=== PATIENT | male | born 1950 | race Caucasian/White ===

== ENCOUNTER 2017-04-26 15:54 | Inpatient (IN) | payer OTHER ==
[2017-04-26] MEDS ORDERED: IPRATROPIUM/ALBUTEROL SULFATE 3 ML AMPUL.NEB NEB ONE ×3 (16:02→17:19)
[2017-04-26] MEDS ORDERED: methylPREDNISolone SOD SUCC 125 MG/2 ML VIAL IM ONE (16:02)
--- NOTE | 2017-04-26 16:02 | ED Physician Documentation ---
Upper Respiratory Symptoms - HISTORIAN Historian: patient - HPI Stated Complaint: short of breath Chief Complaint: Dyspnea Onset: other (1 week ) Duration: constant Context: other. denies: recent foreign travel, insect bite(s), recent chemotherapy, multiple patients Severity: moderate Associated Symptoms: fever, chills - ROS CONST/EYES: weakness CVS/RESP: none, shortness of breath. denies: chest pain, palpitations LYMPH: denies: rash, swollen glands, ankle swelling GI/: denies: abdominal pain, vomiting, nausea NEURO/PSYCH: denies: fainting, dizziness, confusion MS/SKIN: denies: rash - PAST HX Lung Disease: none PE Risk Factors: hypertension Other History: diabetes Type 2 Surgeries/Procedures: other Immunizations: UTD Allergies/Adverse Reactions: Allergies Allergy/AdvReac Type Severity Reaction Status Date / Time No Known Allergies Allergy Verified 04/26/17 16:26 Home Medications: Ambulatory Orders Medication Instructions Recorded Albuterol Sulfate [Ventolin] 2 mg PO TID 04/26/17 Cephalexin [Keflex] 500 mg PO BID 04/26/17 Diclofenac Sodium [Diclofenac 75 mg PO BID 04/26/17 Sodium] Gabapentin [Gabapentin] 100 mg PO 6XDAY 04/26/17 Ibuprofen [Motrin Ib] 600 mg PO TID PRN 04/26/17 Lisinopril [Lisinopril] 10 mg PO DAILY 04/26/17 - SOCIAL HX Smoking History: quit greater than 1 year - FAMILY HX Family History: none - VITAL SIGNS Vital Signs: Vital Signs Temp Pulse Resp BP Pulse Ox 110 H 45 H 122/74 93 04/26/17 16:27 04/26/17 16:27 04/26/17 16:27 04/26/17 17:02 - REVIEWED ASSESSMENTS Nursing Assessment Reviewed: Yes Vitals Reviewed: Yes ED Results Lab/Radiology - Lab Results Lab Results: Lab Results 04/26/17 04/26/17 04/26/17 16:20 16:15 16:10 WBC RBC Hgb Hct MCV MCH MCHC RDW Plt Count Seg Neutrophils % Lymphocytes % Monocytes % Plt Morphology Comment RBC Morph Comment Sodium Potassium Chloride Carbon Dioxide BUN Creatinine Est GFR ( Amer) Est GFR (Non-Af Amer) Glucose Calcium Total Bilirubin AST ALT Alkaline Phosphatase Troponin I < 0.03 ng/mL L ng/mL (0.03-0.06) NT-Pro-B Natriuret Pep 246.8 pg/mL H pg/mL (15.0-125.0) Total Protein Albumin Influenza Type A Ag Negative (NEGATIVE) Influenza Type B Ag Negative (NEGATIVE) 04/26/17 04/26/17 16:10 16:10 WBC 10.20 K/ul K/ul (4.00-12.00) RBC 4.75 M/ul M/ul (3.90-5.20) Hgb 14.7 g/dL g/dL (12.0-18.0) Hct 43.1 % % (37.0-53.0) MCV 90.8 fl fl (80.0-100.0) MCH 31.0 pg pg (28.0-34.0) MCHC 34.2 g/dL g/dL (30.0-36.0) RDW 13.3 % % (11.3-14.3) Plt Count 203 K/mm3 K/mm3 (130-400) Seg Neutrophils % 83 % H % (39-79) Lymphocytes % 11 % L % (16-50) Monocytes % 6 % % (0-11) Plt Morphology Comment Normal (NORMAL) RBC Morph Comment Normal (NORMAL) Sodium 133 mmol/L L mmol/L (136-145) Potassium 3.7 mmol/L mmol/L (3.5-5.1) Chloride 93 mmol/L L mmol/L (98-107) Carbon Dioxide 30 mmol/L mmol/L (22-30) BUN 16 mg/dL mg/dL (9-20) Creatinine 0.90 mg/dL mg/dL (0.66-1.25) Est GFR ( Amer) > 60 (60 - ) Est GFR (Non-Af Amer) > 60 (60 - ) Glucose 138 mg/dL H mg/dL (74-106) Calcium 8.6 mg/dL mg/dL (8.4-10.2) Total Bilirubin 0.8 mg/dL mg/dL (0.2-1.3) AST 58 U/L H U/L (15-46) ALT 54 U/L U/L (13-69) Alkaline Phosphatase 103 U/L U/L (38-126) Troponin I NT-Pro-B Natriuret Pep Total Protein 6.8 g/dL g/dL (6.3-8.2) Albumin 3.5 g/dL g/dL (3.5-5.0) Influenza Type A Ag Influenza Type B Ag - Orders Orders: ED Orders Category Date Time Status Assess pulse oximetry Q1H Care 04/26/17 16:02 Active CHEST P.A.&LAT 2 VIEWS [RAD] Stat Exams 04/26/17 Completed BLOOD CULTURE Stat Lab 04/26/17 16:10 Received BNP [NT-proBNP] Stat Lab 04/26/17 16:10 Completed CBC/PLATELET/DIFF Routine Lab 04/26/17 16:10 Completed CMP Routine Lab 04/26/17 16:10 Completed INFLUENZA A&B Routine Lab 04/26/17 16:15 Completed TROPONIN I (cTnI) Stat Lab 04/26/17 16:20 Completed Allopurinol [Zyloprim] Med 04/27/17 09:00 Ordered 300 mg PO DAILY Atorvastatin Calcium [Lipitor] Med 04/26/17 18:00 Ordered 40 mg PO HS Chem Sticks Med 04/26/17 17:00 Ordered 1 each MC CHEMQ Gabapentin [Neurontin] Med 04/27/17 09:00 Ordered 600 mg PO D Guaifenesin/Codeine Phosphate [Robitussin AC] Med 04/26/17 16:38 Discontinued 10 ml PO Q4H ONE Ipratropium/Albuterol Sulfate [Duoneb] Med 04/26/17 16:02 Discontinued 3 ml NEB .STK-MED ONE Ipratropium/Albuterol Sulfate [Duoneb] Med 04/26/17 16:02 Discontinued 3 ml NEB NOW ONE Ipratropium/Albuterol Sulfate [Duoneb] Med 04/26/17 17:19 Discontinued 3 ml NEB NOW ONE Lisinopril [Prinivil] Med 04/26/17 17:51 Once 10 mg PO NOW ONE methylPREDNISolone SOD SUCC [Solu-MEDROL] Med 04/26/17 16:02 Discontinued 125 mg IM NOW ONE Oxygen Daily Oxygen 04/26/17 16:15 Ordered EKG WITH COMPARISON Stat Ther 04/26/17 Completed Transfer Routine Transfer 04/26/17 Ordered Upper Respiratory Symptoms - EXAM General Appearance: no acute distress, mild distress EENT: eyes nml inspection Neck: normal inspection Respiratory: respiratory distress (mild ), wheezes Abdomen: non-tender, nml bowel sounds CVS: reg rate & rhythm, heart sounds normal, no murmur Skin: color nml, no rash, warm,dry Extremities: non-tender, normal range of motion, no evidence of injury, no edema Neuro/Psych: oriented x3, neuro intact, mood/affect nml Discharge Clincal Impression: Chronic obstructive lung disease Referrals: Niki Marcelino FNP [Primary Care Provider] - 2 Days Condition: Stable Disposition: 09 ADMITTED INPATIENT Decision to Admit: [id number] Date of Decison to Admit: 04/26/17 Decision Time: 17:54
[2017-04-26 16:26] LABS: MEAN CORPUSCULAR VOLUME 90.8 fl (80.0-100.0)
[2017-04-26 16:32] LABS: eGFR (African) > 60; eGFR (Non-African) > 60
[2017-04-26] MEDS ORDERED: GUAIFENESIN/CODEINE 10 ML S/F LIQUID DOSE CUP PO ONE (16:38)
[2017-04-26 16:42] LABS: MONOCYTES % 6 % (0-11); SEGMENTED NEUTROPHILS % 83 % (39-79)
--- NOTE | 2017-04-26 16:46 | Diagnostic Imaging Report ---
[facility] [address] [facility].[address] [id number] Report Submission Date: Apr 26, 2017 4:42:47 PM NUTRITIONAL YEAST SUPERVISOR Patient Study Name: NORMAN PRABHAKAR Date: Apr 26, 2017 4:21:17 PM NUTRITIONAL YEAST SUPERVISOR Modality Type: CR Gender: M Description: CHEST : 46 Institution: [facility] Physician: JOSE LOVE Examination: PA and lateral chest. History: Evaluate lung ledesma. Comparison exam: None provided Findings: PA lateral chest demonstrate a normal cardiac and mediastinal silhouette. Sternotomy wires and cardiac surgical clips. Mild prominence of the right hilum. No peripheral infiltrate. No blunting of the costophrenic margins. Osseous structures are appropriate for age. Impression: Mild right hilar fullness - infiltrate versus vascular versus density. No peripheral infiltrate or effusion. Followup recommended to document resolution. Electronically signed on Apr 26, 2017 4:42:47 PM NUTRITIONAL YEAST SUPERVISOR by: Joseph LANDRY
[2017-04-26] MEDS ORDERED: LISINOPRIL 5 MG TABLET PO ONE (17:51)
--- NOTE | 2017-04-26 18:54 | History and Physical Report ---
History of Present Illnes - History of Present Illness Reason for Visit: DYSPNEA History of Present Illness: 66-year-old white male you have a one-week history of a cough that has become more productive over the last two days of some green to yellow phlegm. Patient is been having some dyspnea and increasing shortness of breath. Patient states with ambulation is having some palpitations at this time. Patient does have a significant history of smoking. Patient subsequently came to the emergency room for evaluation. Patient was given several nebulized treatments Duoneb. Patient is not able to maintain his oxygenation above 83% on room air. Patient was subsequently admitted to the hospital for further care and evaluation. Patient had been seen by Ana M Marcelino and had been placed on cephalexin for a URI/ bronchial infection. Patient stated that he did feel like he was making some improvement with that and then got worse. - Past Medical History Cardiac: CAD, HTN, Hyperlipidemia Pulmonary: COPD Musculoskeletal: Chronic low back pain Endocrine: Other (gou) - Past Surgical History Past Surgical History: Appendectomy, CABG (double bypass), Other (fusion of lumbar vertabrea, csrdiac stent, cataract, GI bleeding) - Past Family History Mother Family History: DM, (72yo) Father Family History: CAD, (70's) Brother 1 Family History: Cancer (lung), CAD Brother 2 Family History: None Sister 1 Family History: , Other (cerebral anerysm) - Past Social History Smoke: Quit (was smoking 1 ppd 50 pk year history) Alcohol: Occassional (one beverage per week.) Drugs: None Lives: With Family Domestic Violence: Negative - Health Maintenance Health Maintenance: Colonoscopy (2010). denies: Pneumococcal Vaccine Influenza Vaccine: Current for this Influenza Season Pneumonia Vaccine: Yes Resuscitation Status: full code - Unable to Obtain History Unable to Obtain: Yes Review of Systems - Review of Systems Constitutional: Fever, Chills Eyes: negative: pain, redness ENT: negative: Ear Pain, Ear Discharge, Nose Pain, Nose Discharge, Nose Congestion, Mouth Pain, Throat Pain, Throat Swelling Respiratory: Cough, Shortness of Breath, SOB with Excertion, Sputum, Wheezing. negative: Hemoptysis, Pleuritic Pain Cardiovascular: Palpitations. negative: Chest Pain, Orthopnea, Paroxysmal Noc. Dyspnea, Edema Gastrointestinal: negative: Nausea, Vomiting, Abdominal Pain, Diarrhea, Constipation, Melena, Hematochezia Genitourinary: negative: Dysuria, Frequency, Incontinence Musculoskeletal: Back Pain Skin: negative: Rash Neurological: Weakness. negative: Numbness, Incoordination, Change in Speech, Confusion, Seizures - Medications/Allergies Allergies/Adverse Reactions: Allergies Allergy/AdvReac Type Severity Reaction Status Date / Time No Known Allergies Allergy Verified 04/26/17 16:26 Home Medications: Home Medications Albuterol Sulfate [Ventolin] 2 mg PO TID 04/26/17 Gabapentin 100 mg PO 6XDAY 04/26/17 Ibuprofen [Motrin Ib] 600 mg PO TID PRN 04/26/17 Lisinopril 10 mg PO DAILY 04/26/17 Current Inpatient Medications: Current Inpatient Medications Allopurinol (Zyloprim) 300 mg PO DAILY CROW Atorvastatin Calcium (Lipitor) 40 mg PO HS CROW Cephalexin (Keflex) 500 mg PO NOW CROW Gabapentin (Neurontin) 600 mg PO D [facility] Miscellaneous (Chem Sticks) 1 each CHEMQ [facility] Last Admin: 04/26/17 16:10 Dose: 1 each Exam - Exam General: Alert, Oriented to Person, Oriented to Place, Oriented to Time, Cooperative, Moderate distress HEENT: Atraumatic, PERRLA, EOMI, Mouth Mucous membr. moist/[place], Nose Mucous membr. moist/[place], Dentition Normal, Hearing Grossly Normal Neck: Normal Range of Motion Carotids: WNL Thyroid: WNL Lungs: Speaks full Sentences, Wheezes (bilateral, exspiratory), Rhonchi (few scattered) Cardiovascular: Regular rate, Normal S1, Normal S2, No murmurs. No: Murmur Abdomen: Normal bowel sounds, Soft, No tenderness, No hepatospenomegaly, No masses. No: Distended Integumentary: Normal, [place], Warm, Dry Extremities: No clubbing, No cyanosis, No edema, Normal pulses, No tenderness/ swelling Neurological: Normal gait, Normal speech, Strength Equal Bilat, Normal tone, Sensation intact, Cranial nerves 3-12 NL, Reflexes 2+ Psych/Mental Status: Mental status NL, Mood NL, Appropriate Affect, Intact Judgment Assessment/Plan - Assessment/Plan (1) Acute exacerbation of chronic obstructive pulmonary disease (COPD) Status: Acute Current Visit: Yes (2) Bronchitis Status: Acute Current Visit: Yes (3) Coronary arteriosclerosis Status: Chronic Current Visit: No Assessment: continue home meds (4) Diabetes type 2, controlled Status: Acute Current Visit: Yes Qualifiers: Diabetes mellitus complication status: without complication Diabetes mellitus intermediate card tender insulin use: without intermediate card tender use Qualified Code(s): E11.9 - Type 2 diabetes mellitus without complications Assessment: will monitor, patient appears to be controlling it with diet (5) Essential hypertension Status: Acute Current Visit: Yes Assessment: continue with home meds VTE Assessment - RISK FACTOR SCORE VTE RISK FACTOR SCORES: AGE OVER 60 YEARS, ACUTE INFECTION OTHER THEN SEPSIS, ACUTE RESPIRATORY FAILURE/SEVERE COPD (3)
[2017-04-26] MEDS ORDERED: CEPHALEXIN 250 MG CAPSULE PO SCH (19:00)
[2017-04-26] MEDS: ATORVASTATIN CALCIUM 80 MG TABLET PO SCH ×2 (19:08→20:01)
[2017-04-26] MEDS: methylPREDNISolone SOD SUCC 40 MG/ML VIAL IVP SCH ×2 (19:09→20:06)
[2017-04-26] MEDS ORDERED: SALINE FLUSH 10 ML DISP.SYRIN IVF ONE (19:56)
[2017-04-26] MEDS: IPRATROPIUM/ALBUTEROL SULFATE 3 ML AMPUL.NEB NEB SCH (20:06)
[2017-04-26 21:20] VITALS: BMI 30.6
[2017-04-27] MEDS: IPRATROPIUM/ALBUTEROL SULFATE 3 ML AMPUL.NEB NEB SCH ×6 (00:56→21:00)
[2017-04-27] MEDS ORDERED: ENOXAPARIN SODIUM 30 MG/0.3 ML DISP.SYRIN SQ SCH (05:55)
[2017-04-27] MEDS ORDERED: IPRATROPIUM/ALBUTEROL SULFATE 3 ML AMPUL.NEB NEB SCH (05:55)
[2017-04-27] MEDS: SALINE FLUSH 10 ML DISP.SYRIN IV SCH ×3 (06:07→19:35)
[2017-04-27 06:13] LABS: APPEARANCE,URINE CLEAR (CLEAR); COLOR,URINE AMBER (YELLOW); OCCULT BLOOD,URINE TRACE-LYSED (NEGATIVE)
[2017-04-27 06:53] LABS: BASOPHILS % 0.3 (0.0-1.5); EOSINOPHILS % 0.2 % (0.0-6.8); MEAN CORPUSCULAR HEMOGLOBIN 30.8 pg (28.0-34.0); MEAN CORPUSCULAR VOLUME 90.5 fl (80.0-100.0); MONOCYTES % 2.7 % (0.0-11.0); NEUTROPHILS # 8.4 # k/uL (1.4-7.7)
[2017-04-27 07:47] LABS: eGFR (African) > 60; eGFR (Non-African) > 60
[2017-04-27] MEDS: GABAPENTIN 300 MG CAPSULE PO SCH (08:19)
[2017-04-27] MEDS: ALLOPURINOL 100 MG TABLET PO SCH (08:20)
--- NOTE | 2017-04-27 08:32 | Diagnostic Imaging Report ---
[facility]G [facility] [address] [facility] [address] [place] [address]. [id number] Report Submission Date: Apr 27, 2017 7:47:40 AM PAPER TUBE CUTTER Patient Study Name: NORMAN PRABHAKAR Date: Apr 27, 2017 6:40:03 AM PAPER TUBE CUTTER Modality Type: CR Gender: M Description: CHEST : 46 Institution: [facility] Physician: [id number]/MED SURG 2 views of the chest History: COPD, shortness of breath Comparison: April 26, 2017 Postsurgical changes of sternotomy and cardiac surgery seen. Heart is normal in size. Basilar predominant chronic interstitial lung changes are again noted. Patchy bibasilar opacities persist. No pleural effusion or pneumothorax Multilevel thoracic spine degenerative changes Impression: 1. Persistent right infrahilar patchy infiltrates. Prominent right hilum with mild bronchiectasis, underlying mass is difficult to exclude, consider elective CT chest evaluation. 2. Postsurgical changes. Emphysema. Minimal left basilar atelectasis Electronically signed on Apr 27, 2017 7:47:40 AM PAPER TUBE CUTTER by: Elisabet LANDRY
[2017-04-27] MEDS: methylPREDNISolone SOD SUCC 40 MG/ML VIAL IVP SCH ×2 (09:03→19:29)
[2017-04-27] MEDS: ATORVASTATIN CALCIUM 80 MG TABLET PO SCH (19:29)
[2017-04-28] MEDS: IPRATROPIUM/ALBUTEROL SULFATE 3 ML AMPUL.NEB NEB SCH ×4 (01:32→12:56)
[2017-04-28] MEDS ORDERED: ENOXAPARIN SODIUM 30 MG/0.3 ML DISP.SYRIN SQ SCH ×2 (05:01→09:00)
[2017-04-28] MEDS: GABAPENTIN 300 MG CAPSULE PO SCH (08:06)
[2017-04-28] MEDS: ALLOPURINOL 100 MG TABLET PO SCH (08:06)
[2017-04-28] MEDS ORDERED: CEPHALEXIN 250 MG CAPSULE PO SCH (09:00)
[2017-04-28] MEDS: methylPREDNISolone SOD SUCC 40 MG/ML VIAL IVP SCH (09:54)
[2017-04-28] MEDS: SALINE FLUSH 10 ML DISP.SYRIN IV SCH (10:02)
--- NOTE | 2017-04-28 12:51 | Inpatient Progress Note ---
Subjective - Required Recertification Statement I anticipate X number of days because-include discharge plan: 1 day - Review of Systems Events since last encounter: Patient seemed to be doing better today. Patient states his breathing has improved some. Patient continues to have a slight cough that is occasionally productive of some clear phlegm. Weaving has improved some. However continued to have some dyspnea with exertion. Diabetes mellitus has been stable without any hypoglycemic episodes. Hypertension has been stable with home medications. Objective - Exam Vitals and I&O: Vital Signs Temp 98.1 F 04/28/17 09:52 Pulse 101 H 04/28/17 09:52 Resp 22 04/28/17 09:52 BP 119/85 04/28/17 09:52 Pulse Ox 90 L 04/28/17 09:52 Intake & Output 04/27/17 04/28/17 04/28/17 23:59 11:59 23:59 Intake Total 960 600 Output Total 800 Balance 960 -200 Weight 100.698 kg Intake: Oral 960 600 Output: Urine 800 Other: Voiding Method Urinal Urinal # Voids 3 General: Alert, Oriented to Person, Oriented to Place, Oriented to Time, Cooperative Neck: Supple Lungs: Normal air movement, Wheezes, Rhonchi Cardiovascular: Regular rate, Normal S1, Normal S2 Abdomen: Normal bowel sounds Extremities: No clubbing, No cyanosis, No edema Skin: Normal, [place], Warm Psych/Mental Status: Mental status NL - Results Results: Laboratory Results WBC 9.40 K/ul (4.00-12.00) 04/27/17 06:30 RBC 4.67 M/ul (3.90-5.20) 04/27/17 06:30 Hgb 14.4 g/dL (12.0-18.0) 04/27/17 06:30 Hct 42.3 % (37.0-53.0) 04/27/17 06:30 MCV 90.5 fl (80.0-100.0) 04/27/17 06:30 MCH 30.8 pg (28.0-34.0) 04/27/17 06:30 MCHC 34.0 g/dL (30.0-36.0) 04/27/17 06:30 RDW 13.3 % (11.3-14.3) 04/27/17 06:30 Plt Count 217 K/mm3 (130-400) 04/27/17 06:30 Neut % (Auto) 89.8 % (39.0-79.0) H 04/27/17 06:30 Lymph % (Auto) 6.1 % (16.0-50.0) L 04/27/17 06:30 [place] % (Auto) 2.7 % (0.0-11.0) 04/27/17 06:30 Eos % (Auto) 0.2 % (0.0-6.8) 04/27/17 06:30 Baso % (Auto) 0.3 (0.0-1.5) 04/27/17 06:30 Neut # (Auto) 8.4 # k/uL (1.4-7.7) H 04/27/17 06:30 Lymph # (Auto) 0.6 # k/uL (0.6-4.0) 04/27/17 06:30 [place] # (Auto) 0.2 # k/uL (0.0-0.9) 04/27/17 06:30 Eos # (Auto) 0.0 # k/uL (0.0-0.6) 04/27/17 06:30 Baso # (Auto) 0.0 # k/uL (0.0-0.5) 04/27/17 06:30 Seg Neutrophils % 83 % (39-79) H 04/26/17 16:10 Lymphocytes % 11 % (16-50) L 04/26/17 16:10 Reactive Lymphs % 0.9 % (0.0-5.0) 04/27/17 06:30 Monocytes % 6 % (0-11) 04/26/17 16:10 Reactive Lymphs # 0.1 # k/uL (0.0-0.8) 04/27/17 06:30 Plt Morphology Comment Normal (NORMAL) 04/26/17 16:10 RBC Morph Comment Normal (NORMAL) 04/26/17 16:10 Sodium 134 mmol/L (136-145) L 04/27/17 06:30 Potassium 4.0 mmol/L (3.5-5.1) 04/27/17 06:30 Chloride 97 mmol/L (98-107) L 04/27/17 06:30 Carbon Dioxide 25 mmol/L (22-30) 04/27/17 06:30 BUN 15 mg/dL (9-20) 04/27/17 06:30 Creatinine 0.70 mg/dL (0.66-1.25) 04/27/17 06:30 Estimated Creat Clear 142 04/27/17 06:30 Est GFR ( Amer) > 60 (60-) 04/27/17 06:30 Est GFR (Non-Af Amer) > 60 (60-) 04/27/17 06:30 Glucose 187 mg/dL (74-106) H 04/27/17 06:30 Calcium 9.0 mg/dL (8.4-10.2) 04/27/17 06:30 Total Bilirubin 0.4 mg/dL (0.2-1.3) 04/27/17 06:30 AST 55 U/L (15-46) H 04/27/17 06:30 ALT 57 U/L (13-69) 04/27/17 06:30 Alkaline Phosphatase 106 U/L (38-126) 04/27/17 06:30 Troponin I < 0.03 ng/mL (0.03-0.06) L 04/26/17 16:20 NT-Pro-B Natriuret Pep 246.8 pg/mL (15.0-125.0) H 04/26/17 16:10 Total Protein 6.8 g/dL (6.3-8.2) 04/27/17 06:30 Albumin 3.5 g/dL (3.5-5.0) 04/27/17 06:30 Urine Color Radha (YELLOW) 04/26/17 20:19 Urine Appearance Clear (CLEAR) 04/26/17 20:19 Urine pH 6.0 (5.0 - 8.0) 04/26/17 20:19 Ur Specific [place] 1.020 (1.010-1.030) 04/26/17 20:19 Urine Protein 2+ mg/dL (NEGATIVE) H 04/26/17 20:19 Urine Ketones Negative mg/dL (NEGATIVE) 04/26/17 20:19 Urine Occult Blood Trace-lysed (NEGATIVE) H 04/26/17 20:19 Urine Nitrite Negative (NEGATIVE) 04/26/17 20:19 Urine Bilirubin 1+ (NEGATIVE) H 04/26/17 20:19 Urine Urobilinogen 2.0 Eu (0.2-1.0) H 04/26/17 20:19 Ur Leukocyte Esterase Negative (NEGATIVE) 04/26/17 20:19 Urine Glucose 1+ mg/dL (NEGATIVE) H 04/26/17 20:19 Influenza Type A Ag Negative (NEGATIVE) 04/26/17 16:15 Influenza Type B Ag Negative (NEGATIVE) 04/26/17 16:15 Assessment/Plan - Assessment/Plan (1) Acute exacerbation of chronic obstructive pulmonary disease (COPD) Status: Acute Assessment: Symptoms have improved. Will continue at present therapy. (2) Diabetes type 2, controlled Status: Chronic Qualifiers: Diabetes mellitus complication status: without complication Diabetes mellitus director long term care insulin use: without fdc use Qualified Code(s): E11.9 - Type 2 diabetes mellitus without complications Assessment: Stable on home medications. (3) Essential hypertension Status: Chronic Assessment: Stable on home medications.
--- NOTE | 2017-04-28 12:52 | Discharge Summary ---
Discharge Summary - Discharge Sumary History of Present Illness: 66-year-old white male you have a one-week history of a cough that has become more productive over the last two days of some green to yellow phlegm. Patient is been having some dyspnea and increasing shortness of breath. Patient states with ambulation is having some palpitations at this time. Patient does have a significant history of smoking. Patient subsequently came to the emergency room for evaluation. Patient was given several nebulized treatments Duoneb. Patient is not able to maintain his oxygenation above 83% on room air. Patient was subsequently admitted to the hospital for further care and evaluation. Patient had been seen by Ana M Marcelino and had been placed on cephalexin for a URI/ bronchial infection. Patient stated that he did feel like he was making some improvement with that and then got worse. Condition at Discharge: Stable Home Medications: Ambulatory Orders Medication Instructions Recorded Albuterol Sulfate [Ventolin] 2 mg PO TID 04/26/17 Gabapentin 100 mg PO 6XDAY 04/26/17 Ibuprofen [Motrin Ib] 600 mg PO TID PRN 04/26/17 Lisinopril 10 mg PO DAILY 04/26/17 Ipratropium/Albuterol Sulfate 3 ml NEB Q4 #60 ampul.neb 04/28/17 [Duoneb] Levofloxacin [Levaquin] 500 mg PO D #10 tablet 04/28/17 Prednisone 10 mg PO DIRECTED #31 tablet 04/28/17 Consultations this Visit: None Procedures this Visit: None Allergies/Adverse Reactions: Allergies Allergy/AdvReac Type Severity Reaction Status Date / Time No Known Allergies Allergy Verified 04/26/17 16:26 Patient Problems: Current Active Problems Problem Status Onset Acute exacerbation of chronic obstructive pulmonary disease (COPD) Acute Bronchitis Acute Chronic obstructive lung disease Acute Diabetes type 2, controlled Acute Essential hypertension Acute Discharge Summary: PatientWas started on hypo notice patient treatments every four hours. Patient was started on IV Solu-Medrol. Patient was continued on antibiotic therapy for his presumed bronchitis. Chest x-ray did show some slight haziness/fullness in the right hilar area. Patient did have some fairly significant improvement within the first 24 hours of hospitalization. At the time to discharge patient was able to maintain as SaO2 at approximately 90-92% on room air while resting.. However with ambulation he did drop down to 85%. Patient was subsequently discharged on supplemental oxygen therapy. Patient diabetes did remain fairly stable during his hospitalization. Blood sugar did increase into the 140/180 range. It was felt that these were elevated because of his steroid therapy. Patient AFT was mildly elevated at 55. Sodium was slightly low at 134. Patient was discharged in stable condition. Patient to follow up with his primary care provider Niki Marcelino. - Final Diagnosis (1) Chronic obstructive lung disease Problems: take Levaquin as directed. Take tapering prednisone dose as directed. (2) Diabetes type 2, controlled Problems: Patient was continued on home medications. (3) Essential hypertension Problems: Patient was continued on home medications.
[2017-04-28 15:46] VITALS: BP 128/72
== END 2017-04-28 15:15 | disposition home or self-care (01) | DRG 191 ==
LOC: ED 15:54 → SOUTH 18:02
PROVIDERS: ADMIT Family Medicine; ATTEND Family Medicine
DX: J44.1 Chronic obstructive pulmonary disease with (acute) exacerbation (principal); I25.810 Atherosclerosis of coronary artery bypass graft(s) without angina pectoris; I10 Essential (primary) hypertension; Z95.1 Presence of aortocoronary bypass graft; E78.5 Hyperlipidemia, unspecified; E11.9 Type 2 diabetes mellitus without complications; M54.5 Low back pain
CPT/HCPCS: 36415; 71020; 80053; 81002; 83880; 84484; 85025; 87040; 87400; 93005; 94640; 94760; J1650; J2920; J2930; 96372; 99222; 99232; 99238; 99284; J1030; S1016